=== PATIENT | female | born 1990 | race Caucasian/White ===

== ENCOUNTER 2019-12-26 08:12 | Inpatient (IN) | payer OTHER ==
[~2019-12-26] VITALS: Ht 157.5 cm; Wt 61.0 kg
--- NOTE | ~2019-12-26 | OR ---
[facility] [address], [place] [address] Draft DATE OF OPERATION: 12/27/2019 SURGEON: Joel Crabtree DO PREOPERATIVE DIAGNOSES: 1. Intrauterine at 40 weeks and 5 days gestation. 2. Transverse position. 3. Anemia of . POSTOPERATIVE DIAGNOSES: 1. Intrauterine at 40 weeks and 5 days gestation. 2. Transverse position. 3. Anemia of . PROCEDURES PERFORMED: Primary low transverse delivery. ANESTHESIA: Spinal. ESTIMATED BLOOD LOSS: 800 mL. CHILD AND ADOLESCENT THERAPIST: Nick Noriega MD. COMPLICATIONS: None. FINDINGS: Viable male , weighing 8 pounds 3 ounces with Apgars of 7 and 9 at 1 and 5 minutes respectively. Baby was born in the transverse back down, head to the maternal left position. Extension of hysterotomy on the right toward the fundus. Estimated blood loss 800 mL. Venous blood gases; pH 7.38, pCO2 of 44.1, HCO3 of 25, base excess 0.4. INDICATIONS: Ms. Morton is a pleasant 29-year-old, G1, P0, with IUP at 40 weeks and 5 days gestation. She presented to Labor and Delivery for elective induction of labor and was found to have a favorable cervix at 3 cm, 80% effaced, and 0 station. vertex was PATIENT NAME: JASMYN MORTON OPERATIVE REPORT DATE OF : 86 REPORT #: [id number] PHYSICIAN: JOEL CRABTREE DO PCP: JOEL CRABTREE DO REPORT IS CONFIDENTIAL AND NOT TO BE RELEASED WITHOUT AUTHORIZATION [facility] [address], [place] [address] Draft noted to be well applied. The patient does not tolerate pelvic exams well and during rupture of membranes, the patient did not tolerate pelvic exam. First attempt was abandoned after noting the vertex well applied to the cervix. An epidural was offered to the patient to ease discomfort during rupture of membranes. The patient declined. During second attempt, a bulging bag was encountered and rupture was performed. Immediately upon rupture, there was a loss of station and it was noted that the baby transitioned to a transverse shoulder presentation. No prolapse cord was noted. A bedside ultrasound was immediately performed, that confirmed position and repeat vaginal exams confirmed no cord prolapse. The patient was consented for a primary low transverse delivery after discussing risks, benefits, alternatives. All questions were answered to the best of my ability and the patient agreed. TECHNIQUE: The patient was taken to the operating room where a time-out was performed to confirm correct patient and correct procedure. Repeat vaginal exam was performed, that demonstrated no prolapse cord. Spinal anesthesia was adequately established and the patient was prepped and draped in the supine position with a bump under her right hip. A Decker catheter was inserted and ICPs were on and running. Ancef 2 g were given preoperatively and no heparin was indicated. Once spinal anesthetic was noted to be adequate, a Pfannenstiel skin incision was made and carried down to the fascia. Fascia was nicked in the midline and the fascial incision was extended bilaterally using curved Lima scissors. The fascia was grasped with Hilario's, elevated, and the underlying rectus dissected off with blunt dissection as well as sharp dissection. The rectus muscles were bluntly dissected in the midline. The peritoneum was entered bluntly. Peritoneal incision was extended cephalad and caudad using blunt and sharp dissection. Survey of the abdomen and pelvis was performed, that demonstrated no adhesive disease. An Darwin self retractor was placed and the lower uterine segment identified. Hysterotomy was then performed using a surgical scalpel in the lower uterine segment. The baby was noted in transverse back down position and gentle attempt was made to bring the vertex cephalad. This was not able to be accomplished gently and decision was made to attempt delivery of the buttocks. The ileum was coaxed into the lower uterine segment and delivered. The legs were delivered and the body was delivered up to the axilla. The anterior shoulder was delivered and the baby was rotated 180 degrees. The now anterior arm was swept medially and delivered without difficulty. The was then rotated occiput anterior. The head was flexed and the was delivered. was vigorous and cried at delivery. Cord blood was clamped and cut and the handed to the waiting pediatric team for further care. Cord gases were obtained. Cord blood was obtained for routine analysis. The placenta was then manually expressed intact with a centrally inserted 3-vessel cord. The uterus was cleared of any remaining products of conception or clot. A small extension of the hysterotomy was noted at the right edge of the hysterotomy that extended a few millimeters up the lateral wall. There is some brisk bleeding. This was made PATIENT NAME: JASMYN MORTON OPERATIVE REPORT DATE OF : 86 REPORT #: [id number] PHYSICIAN: JOEL CRABTREE DO PCP: JOEL CRABTREE DO REPORT IS CONFIDENTIAL AND NOT TO BE RELEASED WITHOUT AUTHORIZATION [address] [address] Draft hemostatic with O'Kimberly stitch of the right uterine artery. The hysterotomy was then repaired using 0 Vicryl in a running locked manner with excellent closure of the extension of the hysterotomy. A second imbricating stitch of 0 Vicryl was applied in a vertical manner with good hemostasis and imbrication. A small amount of oozing was noted in the midline. This was made hemostatic with 0 Vicryl in a rfupit-cm-[id number] stitch. The pelvis was irrigated and found to be hemostatic. The self retractor was removed and the uterus and bilateral tubes and ovaries were noted to be normal. The uterus was noted to be hemostatic and ACell sheet was applied to the lower uterine segment. Peritoneum was then reapproximated using 2-0 Vicryl in a running nonlocked manner. Rectus was made hemostatic with a combination of Bovie electrocautery and Chip powder. Rectus sheath was then reapproximated using 3 interrupted loose sutures of 0 Vicryl. Fascia was then reapproximated using 0 Vicryl in a running nonlocked manner. Subcu was very thin, less than 2 cm, and closure was not indicated. The skin was then reapproximated using surgical cl. Good hemostasis and cosmesis were appreciated. The uterus was then Crede'd for a scant amount of blood and the patient was taken to PACU in good and stable condition with her . Sponge, needle, and instrument counts were correct x2 at the end of procedure. Dr. Noriega was present and participated in all portions of the procedure. DO SULY Gaffney/APRIL /[id number] Copies: ~ PATIENT NAME: JASMYN MORTON OPERATIVE REPORT DATE OF : 86 REPORT #: [id number] PHYSICIAN: JOEL CRABTREE DO PCP: JOEL CRABTREE DO REPORT IS CONFIDENTIAL AND NOT TO BE RELEASED WITHOUT AUTHORIZATION
--- NOTE | 2019-12-27 15:46 | NUR ---
12/27/19 1546 Sheets,S[place] 1533 PT ARRIVED TO [facility] RM 105, VSS. PT DENIES PAIN AND NAUSEA. RESP EVEN AND UNLABORED. IV INFUSING LR WITH 20 PIT, SITE WNL. 1545 BABY TO CHEST WITH [facility] RN.
--- NOTE | 2019-12-28 11:35 | PR ---
[facility] [address] [facility] [place], [place] [address] Signed PP Progress Notes Datetime Report Generated by CPN: 12/28/2019 11:35 SUBJECTIVE: [id number] Pain: Within normal limits Nausea/Vomiting: Denies Flatus: Yes Bowel Movement: No Vital Signs: [id number] Vital Signs: Reviewed; Within Normal Limits EXAM: [id number] Cardiovascular: Normal Respiratory: Normal Abdomen/Uterus: Normal Lochia: Normal Vulva/Perineum: Not Done Breasts: Not Done CVA Tenderness: Normal Extremities: Normal Incision: Normal Progress: Normal Exam Comments: Fundus firm U-2 nontender. Abd distended and tympatic IMPRESSION/PLAN/PROCEDURES: [id number] Impression: Normal progression Plan: Continue present management Progress Notes: Pt seen and examined. doing well. Ambuting, voiding, and tolerating full diet. Pain and lochia minimal. well. No fevers/chills/other concerns. Moderate distention noted on exam today. Pt will add chewing gum. No other questions/concerns. Reviewed AROM and spontaneous transition to transverse position by baby yesterday. All questions answered and pt pleased with care. Signing Physician: Joel Crabtree DO Copies: ~ *Electronically Signed* 12/28/19 3760 JOEL CRABTREE DO PATIENT NAME: JASMYN MORTON PROGRESS NOTE DATE OF : 86 PHYSICIAN: JOEL CRABTREE DO RPT #: [id number] REPORT IS CONFIDENTIAL AND NOT TO BE RELEASED WITHOUT AUTHORIZATION
--- NOTE | 2019-12-29 11:30 | PR ---
[facility] [address] [place], [place] [address] Signed PP Progress Notes Datetime Report Generated by CPN: 12/29/2019 11:30 SUBJECTIVE: [id number] Pain: Within normal limits Nausea/Vomiting: Denies Flatus: Yes Bowel Movement: Yes Vital Signs: [id number] Vital Signs: Reviewed EXAM: [id number] Cardiovascular: Normal Respiratory: Normal Abdomen/Uterus: Normal Lochia: Normal Vulva/Perineum: Not Done Breasts: Not Done CVA Tenderness: Normal Extremities: Normal Incision: Normal Progress: Normal Exam Comments: Fundus firm U-2 nontender Incision healing well w/ cl in place. Distention improved IMPRESSION/PLAN/PROCEDURES: [id number] Impression: Normal progression Plan: Discharge Progress Notes: Pt seen and examined. Doing well. Ambulating, voiding, and tolerating full diet. Pain and lochia minimal. well w/ RN help. No fevers/chills or other concerns. Due to ongoing coronavirus pandemic pt desires expedited discharge home and feels stable for discharge. F/U early next week for staple removal, then for 6 wk pp exam. Planning vasectomy for pp contraception. Signing Physician: Joel Crabtree DO Copies: ~ *Electronically Signed* 12/29/19 3785 JOEL CRABTREE DO PATIENT NAME: JASMYN MORTON PROGRESS NOTE DATE OF : 86 PHYSICIAN: JOEL CRABTREE DO RPT #: [id number] REPORT IS CONFIDENTIAL AND NOT TO BE RELEASED WITHOUT AUTHORIZATION
== END 2019-12-29 14:55 | disposition home or self-care (01) | DRG 788 ==
LOC: FBC 12-27 07:26
PROVIDERS: ADMIT Obstetrics & Gynecology
PROC: 10D00Z1 Extraction of Products of Conception, Low, Open Approach (ICD-10-PCS; principal; 2019-12-27 15:00)
DX: O32.2XX0 Maternal care for transverse and oblique lie, not applicable or unspecified (principal); Z3A.40 40 weeks gestation of pregnancy; Z37.0 Single live birth; O99.02 Anemia complicating childbirth; D50.9 Iron deficiency anemia, unspecified
CPT/HCPCS: 36415; 82803; 85027; A9270; J0690; J1885; J2001; J2274; J2370; J2405; J2590; J3010; J7121